=== PATIENT | female | born 1985 | race Caucasian/White ===

== ENCOUNTER 2020-05-10 06:06 | Day surgery (SDC) | payer BC, OTHER ==
[2020-05-10] MEDS ORDERED: Sodium Chloride 0.9% 1,000 ML IV SCH (06:30)
[2020-05-10] MEDS ORDERED: Bupivacaine 0.5% 50 ML MDV ONE (06:36)
[2020-05-10] MEDS ORDERED: Lidocaine 1% with EPINEPHrine 1:100,000 50 ML MDV ONE (06:36)
[2020-05-10] MEDS ORDERED: Dexamethasone 4 MG/ML SDV ONE (07:24)
[2020-05-10] MEDS ORDERED: fentaNYL 250 MCG/5 ML SDV ONE ×2 (07:24→07:59)
[2020-05-10] MEDS ORDERED: Glycopyrrolate 0.2 MG/ML 5 ML MDV ONE (07:24)
[2020-05-10] MEDS ORDERED: Rocuronium 50 MG/5 ML Vial ONE (07:24)
[2020-05-10] MEDS ORDERED: Succinylcholine 200 MG/10 ML MDV ONE (07:24)
[2020-05-10] MEDS ORDERED: Ondansetron 4 MG/2 ML SDV ONE (07:24)
[2020-05-10] MEDS ORDERED: Propofol 200 MG/20 ML SDV ONE (07:24)
[2020-05-10] MEDS ORDERED: Neostigmine Methylsulfate 1 MG/ML 5 ML Syringe ONE (07:24)
[2020-05-10] MEDS ORDERED: ceFAZolin 2 GM in Premix Bag 1 BAG IV ONE (07:30)
[2020-05-10] MEDS ORDERED: metroNIDAZOLE/Normal Saline 500 MG in Premix Bag 1 BAG IV ONE (07:30)
[2020-05-10] MEDS ORDERED: Ketorolac 60 MG/2 ML SDV ONE (08:06)
[2020-05-10] MEDS ORDERED: hydrOXYzine HCL 100 MG/2 ML SDV IM ONE (08:19)
[2020-05-10] MEDS ORDERED: hydrOXYzine HCL 100 MG/2 ML SDV IM PRN (10:37)
[2020-05-10] MEDS ORDERED: Zolpidem 5 MG Tab PO PRN (10:37)
[2020-05-10] MEDS ORDERED: Benzocaine/Cetylpyridinium/Menthol Lozenge MUCMEM PRN (10:37)
[2020-05-10] MEDS ORDERED: Acetaminophen/HYDROcodone 325-5 MG Tab PO PRN (10:37)
[2020-05-10] MEDS ORDERED: Docusate Sodium 100 MG Cap PO PRN (10:37)
--- NOTE | 2020-05-13 10:10 | OR ---
DATE OF PROCEDURE: 05/10/2020 SURGEON: Dung Corral MD PROCEDURE: Laparoscopic repair of incarcerated ventral hernia. COMPLICATIONS: None. MACHINE HOOP MAKER HELPER: None. ANESTHESIA: General/local. RISKS: Risks, benefits, alternatives, and limitations including, but not limited to infection, bleeding, and perforation of intestinal structures were explained to the patient and they wished to proceed. PROCEDURE IN DETAIL: The patient was placed in supine position. In the right upper quadrant, a 12 mm incision was made. A Veress needle was used to enter the abdomen without abnormality. A drop test was performed without abnormality. The abdomen was subsequently insufflated. This was followed by two 5 mm trocars in the left mid abdomen and right lower abdomen. These were both placed under direct visualization. The hernia was readily identified. This was incarcerated with omentum. This was easily reduced. As the hernia sac was being removed, no abnormality was noted. The hernia measured to be 3 cm. The mesh used would be 11 cm. This was tacked into place in multiple locations approximately every 1 cm or less. The abdomen was reinspected for abnormality. None was noted. The air was removed. The wounds were closed with 3-0 Vicryl and 4-0 Vicryl in interrupted running fashion and Dermabond was applied after irrigation of the wounds. The patient tolerated the procedure well. Dung Corral MD /[id number]
--- NOTE | 2020-05-13 10:16 | OR ---
DATE OF PROCEDURE: 05/10/2020 SURGEON: Dung Corral MD PROCEDURE: Transversus abdominis plane block bilaterally. COMPLICATIONS: None. HOUSE FELLOW: None. RISKS: Risks, benefits, alternatives, and limitations including, but not limited to infection bleeding and injury to abdominal structures were explained, and the patient and wished to proceed. PROCEDURE IN DETAIL: The patient was placed in supine position. The left transverse plane was identified first. This was injected with approximately 80% of the solution. The other side was then performed in the same manner, same fashion, same technique, and same sequence using the same equipment. Dung Corral MD /[id number]
== END 2020-05-10 10:27 | disposition home or self-care (01) ==
LOC: JP.SDS 06:06 → JP.MS 09:15 → JP.SDS 10:27
PROVIDERS: ATTEND Surgery
DX: K43.6 Other and unspecified ventral hernia with obstruction, without gangrene (principal); F17.210 Nicotine dependence, cigarettes, uncomplicated; I10 Essential (primary) hypertension; E66.9 Obesity, unspecified; Z68.42 Body mass index [BMI] 45.0-49.9, adult; Z79.899 Other long term (current) drug therapy
CPT/HCPCS: 49653; 81025; A9270; J0171; J0330; J0690; J1100; J1885; J2405; J2704; J2710; J2795; J3010; J3410; J3490; J7030; C1713; C1781